=== PATIENT | male | born 1995 | race Caucasian/White ===

== ENCOUNTER 2025-02-09 11:14 | Inpatient (IN) ==
--- NOTE | 2025-02-09 12:05 | ED.PDOC ---
General HPI ED Provider: Dr. GRACE NAVA MD Chief Complaint: Cellulitis Stated Complaint: 29 yo WM with 10 year history of type 2 DM, admitted to [facility] last week for DKA and DC a week ago. Noticed some swelling redness and now drainage from the R forearm IV site. PIV catheter been in for 4 days. No fever. Quite a bit of discomfort. Was purulent drainage but now more clear. Unk last tetanus. No injury. Besides DM, also gender dysphoria, anxiety and depression, Crohn's Time Seen by Provider: 02/09/25 11:44 Mode of Arrival: Walk-In Information Source: Patient Exam Limitations: No limitations Primary Care Provider: MATTHEW MOLINA APRN, FNP-C Referred to ED by: Clinic and Other (self) Seen Within Last 72 Hours for Same Complaint By: Clinic Nursing and Triage Documentation Reviewed and Agree: Yes Opioid Naive vs. Tolerant Does Patient Take Opioids?: No What is Opioid Naive?: *Opioid Naive implies the patient is not already taking opioids or not chronically receiving opioids on a daily basis. *PRN dosing is not "usually" associated with tolerance. *Patients are at higher risk of over-sedation and aspiration. What is Opioid Tolerant?: *Opioid Tolerance implies less than the expected response to an opioid. *Acquired tolerance is defined by the patient taking 60mg of oral morphine daily (or equianalgesic dose of another opioid) for 1 week or more. *Often associated with chronic pain. *May take more than usual dose to achieve desired pain control. Review of Systems Review Of Systems Constitutional: Denies Chills, Diaphoresis or Fever Eyes: Reports No symptoms Ears, Nose, Mouth, Throat: Reports Throat swelling Respiratory: Reports No symptoms Cardiac: Reports No symptoms GI: Reports No symptoms Musculoskeletal: Reports Muscle pain and Other (R forearm swelling and infection); Denies Back pain Skin: Reports Change in color Neurological: Reports No symptoms PFSH PFSH Family History MATERNAL GRANDFATHER Diabetes Mother Anxiety Depression FATHER , passed in 2010 Skin cancer Social History Smoking and tobacco status: Never smoker Alcohol intake: never Substance use type: does not use Kasey/protestant: NONE Special kasey needs: No Agree to transfusion: Yes Adopted: No Caregiver/support person: No Household members: friend(s) Housing: house Marital status: S SINGLE Number of children: 0 Highest education level completed: Associate degree: occupational, technical, vocational program Financial difficulty paying for basics: not very hard service: No Current occupational status: unemployed Pets and animals: Yes (2 cats) Leisure activites: art, games and reading History of recent travel: No Sexually active: No Do you think of yourself as: transgender and pelayo Current gender identity: female Seatbelt use: always Helmet use: No Drives intoxicated or rides with intoxicated food service driver: No Water heater temperature set < 120 degrees: Yes Working smoke detector in home: Yes Fire extinguisher in home: Yes Carbon monoxide detector in home: Yes Firearms in home: No Surgical History Abscess Right lower quadrant incision drainage and debridement of abscess L02.91 - Cutaneous abscess, unspecified (ICD-10) H/O hernia repair repair of chronically incarcerated incisional and parastomal hernia. Z98.890 - Other specified postprocedural states (ICD-10) Z87.19 - Personal history of other diseases of the digestive system (ICD-10) H/O exploratory laparotomy with hernia repairs Z98.890 - Other specified postprocedural states (ICD-10) H/O ileostomy Creation/revision of ileostomy/jejunostomy Z98.890 - Other specified postprocedural states (ICD-10) History of colon surgery colostomy Z98.890 - Other specified postprocedural states (ICD-10) Physical Exam Physical Exam Appearance: Reports Obese Ill-appearing: Mild Pain Distress: Mild Eyes: Reports EOMI ENT: Reports Ears normal and Nose normal Neck: Supple Respiratory: Reports Airway patent, Breath sounds clear and Breath sounds equal Cardiovascular: Reports RRR, Pulses normal, No rub and No murmur GI/: Reports Soft, Nontender, No masses, Bowel sounds normal and No Organomegaly Musculoskeletal: Reports Normal strength Skin: Reports Warm and Other (Some localized erythema, fluctuation and small draining wound with induration. Quite tender. Normal Radial pulse. ) Neurological: Reports Sensation intact and Motor intact Psychiatric: Reports Affect appropriate and Mood appropriate Course Course 02/09/25 11:35 02/09/25 11:35 Orders, Labs, Meds: Lab Review 02/09/25 02/09/25 11:35 12:00 WBC 7.38 RBC 5.04 Hgb 12.9 L Hct 41.2 L MCV 81.7 MCH 25.6 L MCHC 31.3 L RDW Coeff of Huey 15.8 H Plt Count 244 Immature Gran % (Auto) 1.6 Neut % (Auto) 69.7 Lymph % (Auto) 18.3 [place] % (Auto) 8.0 Eos % (Auto) 1.9 Baso % (Auto) 0.5 Neut # (Auto) 5.1 Lymph # (Auto) 1.4 [place] # (Auto) 0.6 Eos # (Auto) 0.1 Baso # (Auto) 0.0 Immature Gran # (Auto) 0.1 Sodium 132.0 L Potassium 4.38 Chloride 98.5 Carbon Dioxide 23.1 Anion Gap 14.78 BUN 17.0 Creatinine 0.72 Estimated GFR (MDRD) 129.00 BUN/Creatinine Ratio 23.61 Glucose 542.3 H* Calcium 8.27 L Total Bilirubin 0.34 AST 19.7 ALT 15.8 Alkaline Phosphatase 107.5 Total Protein 7.06 Albumin 3.39 L Globulin 3.67 Albumin/Globulin Ratio 0.92 Procalcitonin 0.06 H Acetone, Qual Trace Orders Category Date Time Status ACCUCHECK (MED/SURG, SCU) [BLOOD GLUCOSE MONITORING ( CARE 02/09/25 13:07 Active MED/SURG)] Q4HR Saline Lock [ED IV/MEDIPORT/POWERPORT] .ONCE EMERGENCY 02/09/25 11:48 Active ACETONE, QUALITATIVE Stat LAB 02/09/25 12:00 Completed BLOOD CULTURE (ED ONLY) Stat LAB 02/09/25 12:39 Received CBC W/ AUTO DIFF Stat LAB 02/09/25 11:35 Completed CMP [COMPREHENSIVE METABOLIC PANEL] Stat LAB 02/09/25 11:35 Completed CULTURE WOUND [WOUND CULTURE] Stat LAB 02/09/25 12:15 Received PROCALCITONIN Stat LAB 02/09/25 11:35 Completed 0.9 % Sodium Chloride [Saline Flush] Meds 02/09/25 11:48 Active 1 syr IVF PRN PRN Insulin Regular, Human [Humulin R (10Ml)] Meds 02/09/25 12:37 Discontinued 12 unit IVP ONCE STA Ketorolac Tromethamine [Toradol] Meds 02/09/25 11:56 Discontinued 30 mg IVP ONCE ONE Ondansetron HCl/Pf [Zofran Sdv] Meds 02/09/25 12:56 Discontinued 4 mg IVP ONCE ONE Sodium Chloride 0.9% [Sodium Chloride] 1,000 ml Meds 02/09/25 12:37 Active IV BOLUS Vancomycin/Water For Inj (Peg) [Vancomycin 1.5 Gram/300 Meds 02/09/25 11:59 Discontinued ml Premix] 1.5 gm in 300 ml IV ONCE US EXTREMITY UPPERLIMITED RT [U/S EXTREMITY RADS 02/09/25 11:56 Completed UPPERLIMITED RT] Stat Medications Generic Name Dose Route Start Last Admin Trade Name Freq PRN Reason Stop Dose Admin Sodium Chloride 1,000 mls @ 1,000 mls/hr 02/09/25 12:37 Sodium Chloride IV 02/09/25 13:36 BOLUS ONE Sodium Chloride 1 syr 02/09/25 11:48 02/09/25 12:06 0.9% Sodium Chloride 10 Ml Disp.Syrin IVF 1 syr PRN PRN Administration To flush IV Discontinued Medications Generic Name Dose Route Start Last Admin Trade Name Freq PRN Reason Stop Dose Admin VANCOMYCIN/WATER FOR INJ (PEG) 1.5 gm in 300 mls @ 200 mls/hr 02/09/25 11:59 02/09/25 12:09 Vancomycin 1.5 Gram/300 Ml Premix IV 02/09/25 13:28 200 mls/hr ONCE ONE Administration Insulin Human Regular 12 unit 02/09/25 12:37 02/09/25 12:49 Insulin Regular, Human 100 Unit/Ml (10ml) Vial IVP 02/09/25 12:38 12 unit ONCE STA Administration Ketorolac Tromethamine 30 mg 02/09/25 11:56 02/09/25 12:06 Ketorolac Tromethamine 30 Mg/Ml Vial IVP 02/09/25 11:57 30 mg ONCE ONE Administration Ondansetron HCl 4 mg 02/09/25 12:56 Ondansetron Hcl/Pf 4 Mg/2 Ml Sdv IVP 02/09/25 12:57 ONCE ONE Given some IV fluid bolus and IV insulin. Antibiotic infusing. discussed with patient and hospitalist about admit Vital Signs: Temp Pulse Resp BP Pulse Ox 02/09/25 11:15 97.1 F L 95 20 145/95 H 97 Discharge Plan Discharge Patient Disposition: PLACED OBSERVATION Discharge Problem: Cellulitis Did you review [place] WATER RESOURCES PROGRAM DIRECTOR for ALL controlled substances?: Not Applicable ED Provider: GRACE NAVA Condition: Fair
[2025-02-09] MEDS: TORADOL IVP ONE (12:06)
[2025-02-09] MEDS: VANCOMYCIN 1.5 GRAM/300 ML PREMIX 1.5 GM/300 ML BAG IV ONE ×2 (12:09→14:36)
[2025-02-09 12:10] LABS: IMMATURE GRANULOCYTE # (AUTO) 0.1 (0.0-1.0); IMMATURE GRANULOCYTE % (AUTO) 1.6 % (0.0-5.0); RDW COEFFICIENT OF VARIATION 15.8 % (11.6-14.8)
[2025-02-09 12:25] LABS: CREATININE 0.72 mg/dL (0.60-1.10)
--- NOTE | 2025-02-09 12:45 | US ---
EXAMINATION: SOFT TISSUE ULTRASOUND OF THE RIGHT FOREARM. HISTORY: Erythematous reduced region at the site of prior intravenous line. COMPARISON: None. TECHNIQUE: Srivastava-scale and color sonographic images obtained in the area of patient concern. FINDINGS: Limited evaluation per technologist report due to location and patient pain. Area of concern right arm distal to the elbow. Area of concern demonstrates diffuse soft tissue thickening and subcutaneous edema with poorly defined fluid. Likely represents diffuse cellulitis and/or phlegmonous change without well-defined drainable abscess. IMPRESSION: The area of concern demonstrates soft tissue thickening and diffuse subcutaneous edema with poorly defined fluid. Likely represents cellulitis and/or phlegmonous change without well-defined drainable abscess at this time. Consider short interval follow-up to evaluate for abscess formation.
[2025-02-09] MEDS: HUMULIN R (10ML) IVP STA (12:49)
--- NOTE | 2025-02-09 13:41 | PCM ---
Date of Service Date Seen by Provider: 02/09/25 Time Seen by Provider: 13:35 Admit Day/Time Admission Date: 02/09/25 Admission Time: 13:34 Reason for Admission Chief Complaint: CELLULITIS/HYPERGLYCEMIA Hospital Provider Hospital Provider: Renee Johansen PA-C, [facility] Primary Care Physician Primary Care Physician: MATTHEW MOLINA APRN, SENIOR LITIGATION PARALEGAL-C History of Present Illness History of Present Illness: PAtient is a 29 year old male with pmhx of DMT1 on insulin, crohn's disease with ileostomy, who presents to ER from PCP office for right forearm cellulitis. Patient was hospitalized at [facility] last week for DKA, discharged on 02/02. He states two days later he noted redness, warmth, and swelling. He states it actually looked worse over the weekend but then drained a lot. Today noted to have significant erythema and some swelling of right forearm. No fever. Labs stable other than hyperglycemia. Patient states he's been unable to administer his insulin properly due to his right forearm pain. US showed no drainable abscess. Given vanc in ER. Will admit to same day surgery center. Case Discussed With Case Discussed With: Patient's case was discussed with the ER Physicians, Dr. Goldsmith. [facility] Surgical History Abscess Right lower quadrant incision drainage and debridement of abscess L02.91 - Cutaneous abscess, unspecified (ICD-10) H/O hernia repair repair of chronically incarcerated incisional and parastomal hernia. Z98.890 - Other specified postprocedural states (ICD-10) Z87.19 - Personal history of other diseases of the digestive system (ICD-10) H/O exploratory laparotomy with hernia repairs Z98.890 - Other specified postprocedural states (ICD-10) H/O ileostomy Creation/revision of ileostomy/jejunostomy Z98.890 - Other specified postprocedural states (ICD-10) History of colon surgery colostomy Z98.890 - Other specified postprocedural states (ICD-10) Family History MATERNAL GRANDFATHER Diabetes Mother Anxiety Depression FATHER , passed in 2010 Skin cancer Social History Smoking and tobacco status: Never smoker Alcohol intake: never Substance use type: does not use Kasey/episcopalian: NONE Special kasey needs: No Agree to transfusion: Yes Adopted: No Caregiver/support person: No Household members: friend(s) Housing: house Marital status: S SINGLE Number of children: 0 Highest education level completed: Associate degree: occupational, technical, vocational program Financial difficulty paying for basics: not very hard service: No Current occupational status: unemployed Pets and animals: Yes (2 cats) Leisure activites: art, games and reading History of recent travel: No Sexually active: No Do you think of yourself as: transgender and pelayo Current gender identity: female Seatbelt use: always Helmet use: No Drives intoxicated or rides with intoxicated sales route driver helper: No Water heater temperature set < 120 degrees: Yes Working smoke detector in home: Yes Fire extinguisher in home: Yes Carbon monoxide detector in home: Yes Firearms in home: No Allergies Allergies Allergy/AdvReac Type Severity Reaction Status Date / Time Sulfa (Sulfonamide AdvReac Unknown Verified 02/09/25 11:26 Antibiotics) Current Medications Home Medications Acetaminophen (Acetaminophen 325 Mg Tablet) 650 mg PO Q4H PRN PRN Reason: Mild Pain Hydrocodone Bitart/Acetaminophen (Hydrocodone Bit/Acetaminophen 5/325 Mg Tablet) 1 tab PO Q6HR PRN PRN Reason: MODERATE PAIN Dextrose (Dextrose 50 % In Water 50 Ml Disp.Syrin) 50 ml IVP ONCE PRN; Protocol PRN Reason: Unconscious Hypoglycemia Cefazolin Sodium/Dextrose (Ancef 2 Gm/50 Ml Premix) 2 gm in 50 mls @ 75 mls/hr IV Q8HR MARIAMA Stop: 02/12/25 13:59 VANCOMYCIN/WATER FOR INJ (PEG) (Vancomycin 1.5 Gram/300 Ml Premix) 1.5 gm in 300 mls @ 200 mls/hr IV Q8HR MARIAMA Stop: 02/12/25 20:59 VANCOMYCIN/WATER FOR INJ (PEG) (Vancomycin 1.5 Gram/300 Ml Premix) 1.5 gm in 300 mls @ 200 mls/hr IV ONCE ONE Stop: 02/09/25 15:59 Insulin Human Lispro (Insulin Lispro 100 Unit/Ml (10 Ml Vial)) 0 unit SUBCUT PRN PRN; Protocol PRN Reason: Hyperglycemia Ondansetron HCl (Ondansetron Hcl/Pf 4 Mg/2 Ml Sdv) 4 mg IVP Q6H PRN PRN Reason: Nausea / Vomiting Sodium Chloride (0.9% Sodium Chloride 10 Ml Disp.Syrin) 1 syr IVF PRN PRN PRN Reason: To flush IV Last Admin: 02/09/25 12:06 Dose: 1 syr blood-glucose,nutrition representative,cont (Dexcom G7 Seafood Specialist) #1 ea 07/22/24 [Rx Confirmed 02/09/25] ileostomy suppies #10 ea 07/22/24 [Rx Confirmed 02/09/25] pen needle, diabetic 32 gauge x 5/32" (TRUEplus Pen Needle) #200 applicators 07/23/24 [Rx Confirmed 02/09/25] metoclopramide HCl 10 mg tablet (Reglan) 10 mg PO Q6H PRN nausea and vomiting #30 tabs 08/08/24 [Rx Confirmed 02/09/25] bupropion HCl 300 mg 24 hr tablet, extended release 300 mg PO QAM #30 tabs 09/07/24 [Rx Confirmed 02/09/25] blood-glucose sensor (Dexcom G7 Sensor device) #4 ea 12/02/24 [Rx Confirmed 02/09/25] insulin glargine 100 unit/mL (3 mL) subcutaneous pen (Lantus Solostar U-100 Insulin) 42 unit (0.42 mL) subcut BID #15 mL 01/10/25 [Rx Confirmed 02/09/25] insulin lispro 100 unit/mL subcutaneous pen 1 sliding scale dose subcut USEASDIRECTD #30 mL 01/10/25 [Rx Confirmed 02/09/25] Opioid Naive vs. Tolerant Does Patient Take Opioids?: No Is Patient Opioid Naive?: Yes What is Opioid Naive?: *Opioid Naive implies the patient is not already taking opioids or not chronically receiving opioids on a daily basis. *PRN dosing is not "usually" associated with tolerance. *Patients are at higher risk of over-sedation and aspiration. Is Patient Opioid Tolerant?: No What is Opioid Tolerant?: *Opioid Tolerance implies less than the expected response to an opioid. *Acquired tolerance is defined by the patient taking 60mg of oral morphine daily (or equianalgesic dose of another opioid) for 1 week or more. *Often associated with chronic pain. *May take more than usual dose to achieve desired pain control. Review of Systems Constitutional: Denies Fever, Fatigue or Weakness Head: Reports Normocephalic and Atraumatic Cardiovascular: Denies Chest pain, Chest Pressure or Edema Respiratory: Denies Cough or Shortness of air Gastrointestinal: Denies Nausea, Vomiting, Diarrhea or Abdominal pain Genitourinary: Denies Dysuria or Hematuria Dermatologic: Reports Other (+right forearm redness, warmth, swelling, and pain ) Physical examination Most Recent Vital Signs: Most Recent Vital Signs Temperature 97.1 F L 02/09/25 11:15 Temperature Source Temporal Artery Scan 02/09/25 11:15 Pulse Rate 95 02/09/25 11:15 Respiratory Rate 02/09/25 11:15 Blood Pressure 145/95 H 02/09/25 11:15 O2 Sat by Pulse Oximetry 97 02/09/25 11:15 Height 5 ft 10 in 02/09/25 11:15 Weight 153.7 kg 02/09/25 11:15 Appearance: Positive No Apparent Distress, Alert and Oriented x3 and Obese Skin: Positive [place], Warm, Good Turgor, Good Color and Other (Right forearm - area of erythema, swelling, induration, and tenderness. No fluctuance noted. Pulses and sensation intact. Compartments normal. ) HEENT: Positive Normocephalic and Atraumatic Neck: Positive Supple and Midline Trachea Chest/Lungs: Positive Clear to Auscultation Bilaterally; Negative Rales, Rhonci or Wheezes Heart: Positive RRR GI/: Positive Soft, Nontender, Bowel Sounds Normal and No Distention Extremities: Negative Edema Neurological: Positive Cranial Nerves Intact, Alert, Oriented and Muscle Strength 5/5 in Upper and Lower Extremities Bilaterally Psychiatric: Positive Oriented x4, Appropriate Mood and Appropriate Affect Labs This Visit Labs This Visit: Labs This Visit 02/09/25 02/09/25 11:35 12:00 WBC 7.38 RBC 5.04 Hgb 12.9 L Hct 41.2 L MCV 81.7 MCH 25.6 L MCHC 31.3 L RDW Coeff of Huey 15.8 H Plt Count 244 Immature Gran % (Auto) 1.6 Neut % (Auto) 69.7 Lymph % (Auto) 18.3 [place] % (Auto) 8.0 Eos % (Auto) 1.9 Baso % (Auto) 0.5 Neut # (Auto) 5.1 Lymph # (Auto) 1.4 [place] # (Auto) 0.6 Eos # (Auto) 0.1 Baso # (Auto) 0.0 Immature Gran # (Auto) 0.1 Sodium 132.0 L Potassium 4.38 Chloride 98.5 Carbon Dioxide 23.1 Anion Gap 14.78 BUN 17.0 Creatinine 0.72 Estimated GFR (MDRD) 129.00 BUN/Creatinine Ratio 23.61 Glucose 542.3 H* Calcium 8.27 L Total Bilirubin 0.34 AST 19.7 ALT 15.8 Alkaline Phosphatase 107.5 Total Protein 7.06 Albumin 3.39 L Globulin 3.67 Albumin/Globulin Ratio 0.92 Procalcitonin 0.06 H Acetone, Qual Trace Imaging Imaging: EXAMINATION: SOFT TISSUE ULTRASOUND OF THE RIGHT FOREARM. HISTORY: Erythematous reduced region at the site of prior intravenous line. COMPARISON: None. TECHNIQUE: Srivastava-scale and color sonographic images obtained in the area of patient concern. FINDINGS: Limited evaluation per technologist report due to location and patient pain. Area of concern right arm distal to the elbow. Area of concern demonstrates diffuse soft tissue thickening and subcutaneous edema with poorly defined fluid. Likely represents diffuse cellulitis and/or phlegmonous change without well-defined drainable abscess. IMPRESSION: The area of concern demonstrates soft tissue thickening and diffuse subcutaneous edema with poorly defined fluid. Likely represents cellulitis and/or phlegmonous change without well-defined drainable abscess at this time. Consider short interval follow-up to evaluate for abscess formation. Review Statement Review Statement: I have independently reviewed and interpreted the labs/EKGs/imaging that were ordered by the ER provider. I have reviewed all outside records that are available currently in our EMR including imaging/notes/labs from previous visits. Plan Plan: 1. Cellulitis due to recent peripheral IV - Due to hx of MRSA, recent hospitalization, and uncontrolled DMT1, will cover with ancef and vanc. Wound culture pending. US negative for abscess. 2. DMT1, uncontrolled - A1c 17.1. Hyperglycemic in ER, but not in DKA. Will do home insulin and aggressive sliding scale. Diabetic diet. 3. Crohn's, not in exacerbation - Doesn't appear to be on any chronic meds DVT Prophylaxis: Ambulation Time Spent: Greater than 80 minutes spent with patient, 50% of the time spent with this patient was devoted to counseling and coordination of care. Advanced Care Plannin minutes spent discussing advance care planning. Admit to: Obs Discussed Plan of Care with Dr. Domingo Rosales. Medications Medication Orders: Medications Ordered Category Date Time Status 0.9 % Sodium Chloride [Saline Flush] Meds 02/09/25 11:48 Active 1 syr IVF PRN PRN Cefazolin Sodium/Dextrose,Iso [Ancef 2 gm/50 ml Premix] Meds 02/09/25 14:00 Ordered 2 gm in 50 ml IV Q8HR
[2025-02-09] MEDS ORDERED: TYLENOL PO PRN (13:54)
[2025-02-09] MEDS ORDERED: DEXTROSE 50%-WATER ABBOJECT IVP PRN (13:54)
[2025-02-09] MEDS ORDERED: ZOFRAN SDV IVP PRN (13:54)
[2025-02-09] MEDS: ZOFRAN SDV IVP ONE (14:17)
[2025-02-09] MEDS: SODIUM CHLORIDE 1,000 ML IV ONE (14:19)
[2025-02-09] MEDS ORDERED: VANCOMYCIN 1 GRAM/200 ML PREMIX 1 GM/200 ML BAG IV ONE (14:30)
[2025-02-09 15:14] VITALS: BMI 47.8
[2025-02-09] MEDS: HUMALOG (10 ML VIAL) SUBCUT STA ×2 (17:49→20:15)
[2025-02-09] MEDS: ANCEF 2 GM/50 ML PREMIX 2 GM/50 ML BAG IV SCH (17:50)
[2025-02-09] MEDS ORDERED: HUMALOG (10 ML VIAL) SUBCUT STA (20:39)
[2025-02-09] MEDS: NORCO 5-325 PO PRN (21:11)
[2025-02-09] MEDS: VANCOMYCIN 1.5 GRAM/300 ML PREMIX 1.5 GM/300 ML BAG IV SCH (21:11)
[2025-02-09] MEDS: HUMALOG (10 ML VIAL) SUBCUT PRN (21:43)
[2025-02-09] MEDS: LANTUS SUBCUT SCH (21:45)
[2025-02-10 05:49] LABS: IMMATURE GRANULOCYTE # (AUTO) 0.2 (0.0-1.0); IMMATURE GRANULOCYTE % (AUTO) 2.1 % (0.0-5.0); RDW COEFFICIENT OF VARIATION 15.3 % (11.6-14.8)
[2025-02-10 06:03] LABS: CREATININE 0.79 mg/dL (0.60-1.10)
--- NOTE | 2025-02-10 10:52 | PCM.PROG ---
Date/Time Seen Date Seen by Provider: 02/10/25 Time Seen by Provider: 08:40 Provider Provider: [facility] Chief Complaint Chief Complaint: CELLULITIS/HYPERGLYCEMIA Subjective Subjective: Patient complains of pain to right forearm. Erythema much improved. Glucose improved today as well. Objective Appearance: Positive No Apparent Distress and Alert and Oriented x3 Chest/Lungs: Positive Clear to Auscultation Bilaterally; Negative Rales, Rhonci or Wheezes Heart: Positive RRR GI/: Positive Soft, Nontender, Bowel Sounds Normal and No Distention Additional Findings: Right proximal forearm - erythema significantly improved, no drainage, swelling improved, area is still indurated and painful with palpation. Pulses and sensation intact. Compartment is soft. Vital Signs Vital Signs: Vital Signs: Last 24 Hours 02/09/25 11:15 02/09/25 14:36 02/09/25 14:36 Temperature 97.1 F L 97.7 F Temperature Source Temporal Artery Scan Temporal Artery Scan Pulse Rate 95 92 Respiratory Rate 20 18 Blood Pressure 145/95 H Blood Pressure Mean Blood Pressure Left Arm 129/89 Blood Pressure Location Blood Pressure Position Sitting O2 Sat by Pulse Oximetry 97 96 Oxygen Delivery Method Room Air Room Air Height 5 ft 10 in 5 ft 10 in Weight 153.7 kg 151.2 kg 02/09/25 15:00 02/09/25 16:00 02/09/25 17:00 Temperature Temperature Source Pulse Rate Respiratory Rate Blood Pressure Blood Pressure Mean Blood Pressure Left Arm Blood Pressure Location Blood Pressure Position O2 Sat by Pulse Oximetry Oxygen Delivery Method Room Air Room Air Room Air Height Weight 02/09/25 17:59 02/09/25 18:00 02/09/25 19:00 Temperature 97.2 F L Temperature Source Temporal Artery Scan Pulse Rate 92 Respiratory Rate 14 Blood Pressure 133/92 H Blood Pressure Mean 105 Blood Pressure Left Arm Blood Pressure Location Left Radial Artery Blood Pressure Position O2 Sat by Pulse Oximetry 96 Oxygen Delivery Method Room Air Room Air Room Air Height Weight 02/09/25 20:00 02/09/25 20:00 02/09/25 21:00 Temperature Temperature Source Pulse Rate Respiratory Rate Blood Pressure Blood Pressure Mean Blood Pressure Left Arm Blood Pressure Location Blood Pressure Position O2 Sat by Pulse Oximetry Oxygen Delivery Method Room Air Room Air Room Air Height Weight 02/09/25 21:35 02/09/25 22:00 02/09/25 22:51 Temperature 97.4 F L Temperature Source Temporal Artery Scan Pulse Rate 91 Respiratory Rate 17 Blood Pressure 127/84 Blood Pressure Mean 98 Blood Pressure Left Arm Blood Pressure Location Right Arm Blood Pressure Position Sitting O2 Sat by Pulse Oximetry 97 Oxygen Delivery Method Room Air Room Air Room Air Height Weight 02/10/25 00:00 02/10/25 01:00 02/10/25 02:00 Temperature 97.3 F L Temperature Source Temporal Artery Scan Pulse Rate 96 Respiratory Rate 20 Blood Pressure Blood Pressure Mean Blood Pressure Left Arm Blood Pressure Location Blood Pressure Position O2 Sat by Pulse Oximetry 97 Oxygen Delivery Method Room Air Room Air Room Air Height Weight 02/10/25 02:00 02/10/25 03:00 02/10/25 04:00 Temperature Temperature Source Pulse Rate Respiratory Rate Blood Pressure Blood Pressure Mean Blood Pressure Left Arm Blood Pressure Location Blood Pressure Position O2 Sat by Pulse Oximetry Oxygen Delivery Method Room Air Room Air Room Air Height Weight 02/10/25 05:00 02/10/25 06:00 02/10/25 06:00 Temperature 97.4 F L Temperature Source Temporal Artery Scan Pulse Rate 95 Respiratory Rate 20 Blood Pressure 126/82 Blood Pressure Mean 96 Blood Pressure Left Arm Blood Pressure Location Left Radial Artery Blood Pressure Position Supine O2 Sat by Pulse Oximetry 98 Oxygen Delivery Method Room Air Room Air Room Air Height Weight 02/10/25 07:00 02/10/25 08:00 02/10/25 09:00 Temperature Temperature Source Pulse Rate Respiratory Rate Blood Pressure Blood Pressure Mean Blood Pressure Left Arm Blood Pressure Location Blood Pressure Position O2 Sat by Pulse Oximetry Oxygen Delivery Method Room Air Room Air Room Air Height Weight 02/10/25 09:58 Temperature Temperature Source Pulse Rate Respiratory Rate Blood Pressure Blood Pressure Mean Blood Pressure Left Arm Blood Pressure Location Blood Pressure Position O2 Sat by Pulse Oximetry Oxygen Delivery Method Room Air Height Weight Lab Results Lab Results: Lab Results: Last 24 Hours 02/10/25 02/09/25 02/09/25 05:20 12:00 11:35 WBC 7.30 7.38 RBC 4.94 5.04 Hgb 12.4 L 12.9 L Hct 41.8 L 41.2 L MCV 84.6 81.7 MCH 25.1 L 25.6 L MCHC 29.7 L 31.3 L RDW Coeff of Huey 15.3 H 15.8 H Plt Count 243 244 Immature Gran % (Auto) 2.1 1.6 Neut % (Auto) 66.7 69.7 Lymph % (Auto) 20.1 18.3 [place] % (Auto) 7.7 8.0 Eos % (Auto) 2.9 1.9 Baso % (Auto) 0.5 0.5 Neut # (Auto) 4.9 5.1 Lymph # (Auto) 1.5 1.4 [place] # (Auto) 0.6 0.6 Eos # (Auto) 0.2 0.1 Baso # (Auto) 0.0 0.0 Immature Gran # (Auto) 0.2 0.1 Sodium 136.8 132.0 L Potassium 3.60 4.38 Chloride 104.5 98.5 Carbon Dioxide 25.2 23.1 Anion Gap 10.70 14.78 BUN 12.9 17.0 Creatinine 0.79 0.72 Estimated GFR (MDRD) 116.00 129.00 BUN/Creatinine Ratio 16.32 23.61 Glucose 185.6 H D 542.3 H* Calcium 8.19 L 8.27 L Total Bilirubin 0.23 0.34 AST 20.4 19.7 ALT 14.4 15.8 Alkaline Phosphatase 100.4 107.5 Total Protein 6.96 7.06 Albumin 3.33 L 3.39 L Globulin 3.63 3.67 Albumin/Globulin Ratio 0.91 0.92 Procalcitonin 0.06 H Acetone, Qual Trace Additional Comments Additional Comments: I have independently reviewed and interpreted the labs/EKGs/imaging ordered during this hospital stay. I have reviewed outside records that are available in our EMR that pertain to medical stay including imaging/notes/labs from previous visits. Active Medications Active Medications: Medications Generic Name Dose Route Start Last Admin Trade Name Freq PRN Reason Stop Dose Admin Acetaminophen 650 mg 02/09/25 13:54 Acetaminophen 325 Mg Tablet PO Q4H PRN Mild Pain Hydrocodone Bitart/Acetaminophen 1 tab 02/09/25 13:54 02/10/25 08:51 Hydrocodone Bit/Acetaminophen 5/325 Mg Tablet PO 1 tab Q6HR PRN Administration MODERATE PAIN Dextrose 50 ml 02/09/25 13:54 Dextrose 50 % In Water 50 Ml Disp.Syrin IVP ONCE PRN Unconscious Hypoglycemia Protocol VANCOMYCIN/WATER FOR INJ (PEG) 1.5 gm in 300 mls @ 200 mls/hr 02/09/25 21:00 02/10/25 04:35 Vancomycin 1.5 Gram/300 Ml Premix IV 02/12/25 20:59 200 mls/hr Q8HR MARIAMA Administration Insulin Glargine 40 unit 02/09/25 21:00 02/10/25 08:45 Insulin Glargine,Hum.Rec.Anlog 100 Units/Ml SUBCUT 40 unit BID MARIAMA Administration Insulin Human Lispro 0 unit 02/09/25 14:26 02/10/25 06:19 Insulin Lispro 100 Unit/Ml (10 Ml Vial) SUBCUT 4 unit PRN PRN Administration Hyperglycemia Protocol Ondansetron HCl 4 mg 02/09/25 13:54 Ondansetron Hcl/Pf 4 Mg/2 Ml Sdv IVP Q6H PRN Nausea / Vomiting Sodium Chloride 1 syr 02/09/25 11:48 02/09/25 12:06 0.9% Sodium Chloride 10 Ml Disp.Syrin IVF 1 syr PRN PRN Administration To flush IV Plan Plan: 1. Cellulitis due to recent peripheral IV - Improving. Wound culture pending, showing gram positive cocci, will drop ancef, cont vanc. US negative for abscess. 2. DMT1, uncontrolled - Improved A1c 17.1. Hyperglycemic in ER, but not in DKA. Will do home insulin and aggressive sliding scale. Diabetic diet. 3. Crohn's, not in exacerbation - Doesn't appear to be on any chronic meds DVT Prophylaxis: Ambulation Dispo: Possible dc tomorrow if further improvement and wound culture resulted Made inpatient today - patient has many risk factors for worsening condition, requires a 2nd midnight and IV abx Review Statement Review Statement: I have personally discussed and reviewed the patient's visit/currently labs/imaging/decision making with Dr. Rosales, my supervising attending. Greater that 50 minutes spent with patient, 50% of the time spent with this patient was devoted to counseling and coordination of care.
[2025-02-10] MEDS: VANCOMYCIN 1.25 GM/250 ML BAG 1.25 GM/250 ML BAG IV SCH (13:19)
[2025-02-11 05:22] LABS: IMMATURE GRANULOCYTE # (AUTO) 0.1 (0.0-1.0); IMMATURE GRANULOCYTE % (AUTO) 1.8 % (0.0-5.0); RDW COEFFICIENT OF VARIATION 15.3 % (11.6-14.8)
[2025-02-11 05:39] LABS: CREATININE 0.76 mg/dL (0.60-1.10)
[2025-02-11 05:52] VITALS: TEMP 97.5
--- NOTE | 2025-02-11 09:03 | DCSUM ---
Admission Date Admission Date: 02/09/25 Discharge Date Discharge Date: 02/11/25 Admission Diagnosis Admission Diagnosis: 1. Cellulitis due to recent peripheral IV Discharge Diagnosis Discharge Diagnosis: 1. Cellulitis due to MRSA - improved 2. DMT1, uncontrolled 3. Crohn's, not in exacerbation Hospital Provider Hospital Provider: RENEE JOHANSEN PA-C, [facility] Primary Care Physician Primary Care Physician: MATTHEW MOLINA APRN, [facility] Summary of History and Physical Summary of History and Physical: Patient is a 29 year old male with pmhx of DMT1 on insulin, crohn's disease with ileostomy, who presents to ER from PCP office for right forearm cellulitis. Patient was hospitalized at [facility] last week for DKA, discharged on 02/02. He states two days later he noted redness, warmth, and swelling. He states it actually looked worse over the weekend but then drained a lot. Today noted to have significant erythema and some swelling of right forearm. No fever. Labs stable other than hyperglycemia. Patient states he's been unable to administer his insulin properly due to his right forearm pain. US showed no drainable abscess. Given vanc in ER. Will admit to [facility]. Hospital Course Subjective: Patient was treated with IV ancef and vanc, deescalated to vanc once culture grew GPC. Culture resulted MRSA sensitive to doxy. Erythema and swelling significantly improved since admission. Will send home with 5 more days of doxy. Pt states he is unable to get from pharmacy due to transportation issues, [facility] is able to deliver it to him. Highly encouraged compliance with his insulin. Patient agrees to plan of care. F/u with pcp. Appearance: Pleasant, No Apparent Distress and Alert HEENT: MMM CVS: Other (RRR) Abdomen: Soft, Non-Tender and No Distention Respiratory: No Accessory Muscle Use Extremities: No Edema Additional Findings: right proximal forearm - erythema and swelling significantly improved, no discharge, pulses and sensation intact. Vital Signs: Most Recent Vital Signs Temperature 97.5 F L 02/11/25 05:51 Temperature Source Temporal Artery Scan 02/11/25 05:51 Temperature Source Temporal Artery Scan 02/09/25 11:15 Pulse Rate 104 H 02/11/25 05:51 Respiratory Rate 20 02/11/25 05:51 Blood Pressure 110/73 02/11/25 05:51 Blood Pressure Mean 85 02/11/25 05:51 Blood Pressure Left Arm 129/89 02/09/25 14:36 Blood Pressure Location Left Arm 02/11/25 05:51 Blood Pressure Position Supine 02/11/25 05:51 O2 Sat by Pulse Oximetry 96 02/11/25 05:51 Oxygen Delivery Method Room Air 02/11/25 05:51 Height 5 ft 10 in 02/10/25 10:14 Weight 151.2 kg 02/10/25 10:14 Imaging: EXAMINATION: SOFT TISSUE ULTRASOUND OF THE RIGHT FOREARM. HISTORY: Erythematous reduced region at the site of prior intravenous line. COMPARISON: None. TECHNIQUE: Srivastava-scale and color sonographic images obtained in the area of patient concern. FINDINGS: Limited evaluation per technologist report due to location and patient pain. Area of concern right arm distal to the elbow. Area of concern demonstrates diffuse soft tissue thickening and subcutaneous edema with poorly defined fluid. Likely represents diffuse cellulitis and/or phlegmonous change without well-defined drainable abscess. IMPRESSION: The area of concern demonstrates soft tissue thickening and diffus e subcutaneous edema with poorly defined fluid. Likely represents cellulitis and/or phlegmonous change without well-defined drainable abscess at this time. Consider short interval follow-up to evaluate for abscess formation. Lab Results Last 24 Hours: 02/11/25 02/10/25 04:25 12:29 WBC 7.06 RBC 4.73 Hgb 12.1 L Hct 40.3 L MCV 85.2 MCH 25.6 L MCHC 30.0 L RDW Coeff of Huey 15.3 H Plt Count 269 Immature Gran % (Auto) 1.8 Neut % (Auto) 64.3 Lymph % (Auto) 22.5 [place] % (Auto) 7.9 Eos % (Auto) 2.8 Baso % (Auto) 0.7 Neut # (Auto) 4.5 Lymph # (Auto) 1.6 [place] # (Auto) 0.6 Eos # (Auto) 0.2 Baso # (Auto) 0.1 Immature Gran # (Auto) 0.1 Sodium 136.5 Potassium 3.90 Chloride 105.6 Carbon Dioxide 23.0 Anion Gap 11.80 BUN 8.3 L Creatinine 0.76 Estimated GFR (MDRD) 121.00 BUN/Creatinine Ratio 10.92 Glucose 165.6 H Calcium 8.34 L Total Bilirubin 0.21 AST 21.5 ALT 10.3 Alkaline Phosphatase 96.3 Total Protein 7.01 Albumin 3.29 L Globulin 3.72 Albumin/Globulin Ratio 0.88 Vancomycin Trough 18.194 Discharge Instructions Discharge Planning: Discharge Planning > [address] Domingo Rosales. Discharge Medications: Medications at Discharge (Home Meds & RX) blood-glucose,clinical operations manager,cont (Dexcom G7 Classifier) #1 ea 07/22/24 ileostomy suppies #10 ea 07/22/24 pen needle, diabetic 32 gauge x 5/32" (TRUEplus Pen Needle) #200 applicators 07/23/24 blood-glucose sensor (Dexcom G7 Sensor device) #4 ea 12/02/24 insulin glargine 100 unit/mL (3 mL) subcutaneous pen (Lantus Solostar U-100 Insulin) 40 unit subcut BID 02/09/25 insulin lispro 100 unit/mL subcutaneous pen 15 unit subcut QID 02/09/25 doxycycline monohydrate 100 mg capsule 100 mg PO BID 5 days #10 caps 02/11/25 Discharge Plan Discharge Discharge Orders: Discharge Patient (ONCE); Ordered 02/11/25 Ordered By: RENEE JOHANSEN Activity Restrictions/Additional Instructions: DISCHARGE TO HOME DX: RIGHT ARM CELLULITIS PHARMACY: [facility] I DOXYCYCLINE PRESCRIBED, PLEASE FINISH FOLLOW UP WITH Primary Care Provider YOUR WOUND GREW MRSA Patient Disposition: HOME SELF-CARE Prescriptions: New doxycycline monohydrate 100 mg capsule 100 mg PO BID 5 Days Qty: 10 0RF Rx Instructions: START TONIGHT 02/11 Continued insulin lispro 100 unit/mL insulin pen 15 unit subcut QID Rx Instructions: Inject 15 units under the skin 3 times daily with meals, and at Bedtime. Use also as Sliding Scale > 1 unit per each 50 greater than 200 insulin glargine [Lantus Solostar U-100 Insulin] 100 unit/mL (3 mL) insulin pen 40 unit subcut BID Discontinued bupropion HCl 300 mg tablet extended release 24 hr 300 mg PO QAM Qty: 30 1RF No Action (DME) pen needle, diabetic [TRUEplus Pen Needle] 32 gauge x 5/32" needle See Rx Instructions .ROUTE .COMPLEX Qty: 200 0RF Dose Instruction: USE DIRECTED WITH INSULIN UP TO SIX TIMES DAILY Rx Instructions: USE DIRECTED WITH INSULIN UP TO SIX TIMES DAILY (DME) ileostomy suppies See Rx Instructions .ROUTE .MEDSUPPLY Qty: 10 5RF Rx Instructions: As directed (DME) Dexcom G7 Classifier Misc See Rx Instructions .ROUTE Qty: 1 0RF Rx Instructions: As directed (DME) Dexcom G7 Sensor Device See Rx Instructions .ROUTE Qty: 4 3RF Rx Instructions: As directed Did you review [place] for ALL controlled substances?: Not Applicable Discussed opioids are addictive and Narcan is available by prescription or from pharmacy.: No Condition: Stable Referrals: MATTHEW MOLINA APRN,BIOSTATISTICS DIRECTOR-C [Primary Care Provider, NURSE PRACTITIONER] - 02/16/25 9:30 am
[2025-02-11 11:31] VITALS: BP 146/92; PULSE 87; RESP 16
== END 2025-02-11 12:35 | disposition home or self-care (01) | DRG 868 ==
LOC: ED 11:14 → MEDSURG B 11:14
PROVIDERS: ADMIT Hospitalist; ATTEND Physician Assistant